=== PATIENT | male | born 1940 | race Caucasian/White ===

== ENCOUNTER 2018-03-05 13:25 | Emergency (ER) | payer MEDICARE, OTHER, SELFPAY ==
[2018-03-05 13:27] VITALS: BP 159/76; PULSE 57; RESP 16; TEMP 36.6; O2SAT 96; BMI 29.5
[2018-03-05 14:34] VITALS: BP 167/74; PULSE 74; RESP 18; O2SAT 98
--- NOTE | 2018-03-05 14:47 | RAD_ITS ---
STUDY: X-RAY - LEFT SHOULDER REASON FOR EXAM: Left shoulder pain from a fall. TECHNIQUE: 4 view(s) of the shoulder. COMPARISON: None. FINDINGS: Normal glenohumeral articulation. Normal acromioclavicular joint. Normal acromion. Normal humeral head and visualized proximal humerus. The soft tissue structures are unremarkable. Normal visualized pulmonary apex. RAD/Shoulder min 2 Views IMPRESSION: Unremarkable x-ray examination of the left shoulder without demonstrated fracture. Electronically Signed: Gary Pepe MD at 16:05 EDT Tel , Service support ,
--- NOTE | 2018-03-05 14:47 | CT_ITS ---
STUDY: CT BRAIN WITHOUT CONTRAST REASON FOR EXAM: Male, 78 years old. Syncope. Abrasion. RADIATION DOSAGE (If Supplied By Facility): CTDIvol = ( 44.99 ) mGy, DLP = ( 846.73 ) mGycm TECHNIQUE: Transaxial CT imaging of the brain was performed without administration of intravenous contrast material. Individualized dose optimization techniques were used for this CT. COMPARISON: None. FINDINGS: Normal soft tissue structures. Normal calvarium. There is moderate cerebral atrophy with widening of the extra-axial spaces and ventricular dilatation. Normal white matter tracts of the cerebral hemispheres. Normal basal ganglia and thalami. Normal brainstem. Normal cerebellum. There is no intracranial hemorrhage. There are no findings of an acute ischemic infarction. Normal visualized paranasal sinuses. CT/Brain/Head without Contrast IMPRESSION: Chronic involutional changes of the brain. Electronically Signed: Nazario Scott MD at 15:51 EDT , Service support ,
--- NOTE | 2018-03-05 14:47 | EKG12_ITS ---
Test Reason : SYNCOPE Blood Pressure : / mmHG Vent. Rate : 057 BPM Atrial Rate : 057 BPM P-R Int : 208 ms QRS Dur : 084 ms QT Int : 418 ms P-R-T Axes : 070 -09 049 degrees QTc Int : 406 ms Sinus bradycardia Otherwise normal ECG Confirmed by ARIANA LEACH, CHELI ([id number]), tape editor IFRAH CUMMINGS ([id number] on 03/08/2018 2:00:02 PM Referred By: RASHAD Confirmed By:CHELI LANE MD
--- NOTE | 2018-03-05 15:25 | RAD_ITS ---
STUDY: X-RAY - RIGHT HAND REASON FOR EXAM: Injury of the right third and fourth fingers from circular saw. TECHNIQUE: 3 view(s) of the hand. COMPARISON: Radiograph report 05/28/2012. FINDINGS: Normal radiocarpal articulation. Normal distal radioulnar joint. Normal visualized carpal bones. Normal carpal articulations Normal carpometacarpal articulation of the thumb. Normal second through fifth carpometacarpal joints. Normal metacarpi. Normal metacarpophalangeal joint of the thumb. There is joint space narrowing of the interphalangeal joint of the thumb. Normal proximal and distal phalanges of the thumb. Normal metacarpophalangeal joints of the second through fifth fingers. There is joint space narrowing of the second through fifth distal interphalangeal joints. There is a very small fracture of the radial aspect of the ungual tuft of the third finger. There is a soft tissue defect of the distal aspect of the third finger and mild swelling of the distal aspect of the fourth finger. RAD/Hand Min 3 Views IMPRESSION: Very small fracture of the ungual tuft of the third finger. 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 Electronically Signed: Gary Pepe MD at 16:03 EDT Tel , Service support ,
[2018-03-05 16:10] VITALS: BP 154/78; PULSE 66; RESP 16; O2SAT 96
[2018-03-05] MEDS: Diphth,Pertuss(Acell),Tet Vac 0.5 ML Vial IM (16:12)
--- NOTE | 2018-03-05 17:38 | ED.DCSUM_ITS ---
- ER Visit Summary Date of Service: 03/05/18 Chief Complaint: Circular saw injury to the right third and fourth fingers. History of Present Illness: The patient is a 78 M who was using a circular saw when he injured his right third and fourth digits. Afterwards he began to feel lightheaded and dizzy and had a syncopal episode. He fell onto his left shoulder and hit his head. He does have a prior history of vasovagal syncope related to pain or blood. He denies any chest pain or shortness of breath. He denies really any medical history. He takes no medications. Physical Examination: Afebrile vitals are unremarkable Heart regular rate and rhythm Lungs are clear Patient has active full range of motion left shoulder but it is painful. No deformity. No focal pain to the clavicle. He has a small hematoma over the left forehead. GCS is 15 with no focal or lateralizing neurological deficits There is an open wound of the right third distal finger with complex stellate laceration and macerated tissue there is a 1 cm more linear laceration of the distal right fourth finger his sensation is intact to light touch with brisk capillary refill Test Results: Hand x-ray shows a very small tuft fracture of the third finger. Left shoulder x-rays unremarkable. CT the head shows chronic changes only. EKG shows normal sinus rhythm at a rate of 57. Emergency Department Course and Treatment: Digital block was performed of the right third and fourth fingers. The fingers were cleansed with saline and chlorhexidine. The laceration of the fourth finger was able to be approximated with 3 simple interrupted 5-0 nonabsorbable sutures. There is macerated tissue and complex laceration of the distal third finger. I was able to place a single 5-0 nonabsorbable suture to approximate a portion of this laceration but any attempts at suturing any remaining tissue was unsuccessful and just resulted in tearing. I spoke to Dr. Cabral who has seen the patient previously. He states he would be able to follow -up the patient closely as an outpatient. The patient was instructed on specific signs and symptoms to monitor for and conditions under which to return to the emergency department. All questions answered at bedside. Patient discharged. Treatment Plan: [] Disposition: Discharge Impression: Open wound right third finger Laceration right fourth finger Tuft fracture right third finger Vasovagal syncope Shoulder contusion This note was generated with Dragon dictation software. It may contain incorrect words, spelling, and punctuation that were not noted in review of the chart prior to signing ED Disposition - Plan for ED Patient: Chief Complaint: Upper Extremity Injury Referrals: Jolanta Beltran DO [Primary Care Provider] -
--- NOTE | 2018-03-05 17:38 | NURSING ---
DR MI VALENCIA
--- NOTE | 2018-03-05 17:42 | NURSING ---
DR MI VALENCIA
--- NOTE | 2018-03-05 17:48 | ED.DEP ---
ED Disposition - Plan for ED Patient: Chief Complaint: Upper Extremity Injury Instructions: ED Laceration Hand, ED Fx Finger Open, ED Contusion Upper Ext, ED Syncope Vasovagal Prescriptions: Cefadroxil [Duricef] 500 mg PO BID #20 cap Referrals: Jolanta Beltran DO [Primary Care Provider] - Marco Cabral MD [STAFF PHYSICIAN] -
[2018-03-05 18:22] VITALS: BP 149/70; PULSE 67; RESP 16; O2SAT 96
== END 2018-03-05 18:29 | disposition home or self-care (01) ==
LOC: ED 15:08
PROVIDERS: Emergency Provider Emergency Medicine; Family Provider Internal Medicine; PCP Internal Medicine
DX: S62.632B Displaced fracture of distal phalanx of right middle finger, initial encounter for open fracture (principal); W29.8XXA Contact with other powered hand tools and household machinery, initial encounter; Y93.9 Activity, unspecified; Y92.9 Unspecified place or not applicable; Y99.9 Unspecified external cause status; S61.214A Laceration without foreign body of right ring finger without damage to nail, initial encounter; Z23 Encounter for immunization; R55 Syncope and collapse; S40.012A Contusion of left shoulder, initial encounter; W18.30XA Fall on same level, unspecified, initial encounter
CPT/HCPCS: 12001; 70450; 73030; 73130; 90471; 90715; 93005; 99285

== ENCOUNTER 2024-08-14 12:44 | Emergency (ER) | payer MEDICARE, OTHER, SELFPAY ==
[2024-08-14 12:47] VITALS: BP 166/59; PULSE 52; RESP 18; TEMP 36.4; O2SAT 98; BMI 25.6
--- NOTE | 2024-08-14 13:41 | EKG12_ITS ---
Test Reason : DIZZINESS Blood Pressure : / mmHG Vent. Rate : 047 BPM Atrial Rate : 047 BPM P-R Int : 206 ms QRS Dur : 086 ms QT Int : 456 ms P-R-T Axes : 070 -13 054 degrees QTc Int : 403 ms Sinus bradycardia Otherwise normal ECG Confirmed by ARIANA LEACH, CHELI ([id number]), newspaper copy editor RAYMOND NDIAYE ([id number]) on 08/15/2024 9:56:19 AM Referred By: Confirmed By:CHELI LANE MD
--- NOTE | 2024-08-14 13:42 | RAD_ITS ---
STUDY: X-RAY CHEST REASON FOR EXAM: Male, 84 years old. Stroke TECHNIQUE: Single AP portable view of the chest. COMPARISON: None. FINDINGS: The lungs are clear and expanded. Scattered calcified granulomas. There is no demonstrated pleural abnormality. Normal size heart. Normal mediastinum and yesika. Normal visualized pulmonary arteries. There is atherosclerotic calcification of the aortic arch with tortuosity. There are diffuse degenerative changes of the visualized thoracic spine. Normal visualized ribs, clavicles, and shoulders. There is no demonstrated abnormality of the visualized soft tissue structures of the upper abdomen. RAD/Chest 1 View (Portable) IMPRESSION: Scattered calcified granulomas. No acute abnormality is seen. Electronically Signed: Deandre Griggs MD at 13:56 EDT ,
[2024-08-14 14:25] LABS: Absolute Lymphocyte Count 2.75 X10^3/uL (0.83-4.51); Absolute Neutrophil Count 5.9 X10^3/uL (2.0-7.7); Basophil# 0.09 X10^3/uL; Basophil% 0.9 % (0-1); Eosinophil# 0.26 X10^3/uL; Eosinophils% 2.7 % (0-5); Hematocrit 37.8 % (40-54); Hemoglobin 12.5 g/dL (13.0-16.5); Lymphocyte # 2.75 X10^3/ul (0.83-4.51); Lymphocyte % 28.1 % (19-41); Mean Corp Hgb Conc 33.1 g/dL (32-36); Mean Corpuscular Hgb 32.1 pg (27.0-32.0); Mean Corpuscular Volume 96.9 fL (80-94); Mean Platelet Vol. 10.6 fl (6.2-12.0); Monocyte# 0.74 X10^3/uL; Monocyte% 7.6 % (0-10); NRBC Flagged by Analyzer 0.2 % (0-5); Neutrophil # 5.92 X10^3/uL (2.7-7.7); Neutrophil % 60.3 % (47-70); Platelet Count 263 K/mm3 (150-450); RBC Distribution Width CV 16.9 % (11.6-14.6); RBC Distribution Width SD 60.1 fl (35.1-43.9); White Blood Count 9.8 K/mm3 (4.4-11.0)
[2024-08-14 14:34] LABS: Prothrombin Time (Protime)PT. 13.4 SECONDS (11.7-14.9)
[2024-08-14 14:35] LABS: Partial Thromboplast Time 25.8 Seconds (24.1-36.2)
[2024-08-14 14:37] LABS: Anion Gap 3 (5-15); BUN 14 mg/dL (7-18); BUN/Creat Ratio 16.8 RATIO (10-20); Chloride 108 mmol/L (98-107); Creatinine, Serum 0.83 mg/dL (0.70-1.30); EST Glomerular Filtration Rate 94 mL/min (>60); Est Glom Filt Rate - Afr Amer 114 mL/min (>60); Estimated Creatinine Clearance 66.39 ml/min; Glucose 106 mg/dL (74-106); Potassium 3.9 mmol/L (3.5-5.1); Sodium Level 139 mmol/L (136-145)
[2024-08-14 14:42] VITALS: BP 170/61; PULSE 47; RESP 14
--- NOTE | 2024-08-14 15:31 | CT_ITS ---
STUDY: CT BRAIN WITHOUT CONTRAST REASON FOR EXAM: Male, 84 years old. head injury RADIATION DOSAGE (If Supplied By Facility): CTDIvol = ( 44.99 ) mGy, DLP = ( 863.60 ) mGycm TECHNIQUE: Transaxial CT imaging of the brain was performed without administration of intravenous contrast material. Individualized dose optimization techniques were used for this CT. COMPARISON: No relevant priors. FINDINGS: Normal soft tissue structures. Normal calvarium. Slightly prominent ventricles and extra-axial spaces with mild atrophy. Normal white matter tracts of the cerebral hemispheres. Normal basal ganglia and thalami. Normal brainstem. Normal cerebellum. There is no intracranial hemorrhage. There are no findings of an acute ischemic infarction. Normal visualized paranasal sinuses. CT/Brain/Head without Contrast IMPRESSION: No acute intracranial pathology of the brain. Electronically Signed: Raghu Winchester DO at 17:07 EDT ,
--- NOTE | 2024-08-14 15:33 | EX.ED.DYSGE1 ---
HPI History of Present Illness Chief Complaint: Dizziness Informant: patient Narrative Narrative: Patient is an 84 year old male who denies any significant past medical history presenting with dizziness. Patient states he started feeling dizzy 3 to 4 days ago. He states it feels like he is going to pass out and describes it more as a lightheadedness. Denies any room spinning or vertiginous symptoms. His noticed that this morning he went to get up and do his normal routine but instead just stood at the end of the bed for 2 to 3 minutes. He states he felt very weak at that time. He then felt better and went back to using the restroom and making his morning coffee. He went to his chiropractor for the symptoms on Sunday of this week, 3 days ago. At that time he had an adjustment of his neck and back and was noted to be bradycardic with a heart rate of 44. The chiropractor recommend he follow-up with the medical doctor. They try to get a hold of the 's primary care doctor as [facility] were [facility] so they ultimately came to the emergency room today. Patient states his lightheadedness is worse in the morning. He denies any syncope or loss of consciousness. He denies any falls. He notes that he does frequently hit his head on random things and that is not new for him. Denies any headaches or acute vision changes. Denies any shortness of breath, leg swelling, dyspnea on exertion or chest pain. Denies any nausea or vomiting, urinary symptoms or URI symptoms. Denies any black or blood in his stool. Does not take any medicine on a daily basis. States he last saw [facility] this [facility] where he had blood work and was told everything looked good. 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 No other complaints or concerns at this time. PFSH PFS Home Medications ?Medication ?Instructions ?Recorded ?Last Taken ?Type cefadroxil 500 mg capsule 500 mg PO BID #20 caps 03/05/18 Unknown Rx Allergy/AdvReac Type Severity Reaction Status Date / Time No Known Allergies Allergy Verified 08/14/24 12:47 Social History household members: spouse housing: house Smoking Status: Never smoker ROS ROS ED Constitutional Constitutional ED: Reports other Details: lightheaded ; Denies chills, fever(s), sweats or weight loss ENT ENT ED: Denies rhinorrhea or sore throat Cardiovascular Cardiovascular: Denies chest pain or palpitations Respiratory/Chest Respiratory/Chest: Denies cough, dyspnea or dyspnea on exertion Gastrointestinal Gastrointestinal: Denies abdominal pain, diarrhea, melena, nausea or vomiting Genitourinary Genitourinary ED: Denies dysuria or urinary frequency Musculoskeletal Musculoskeletal: Denies arthralgias or myalgias Integumentary Denies rash Neurologic Neurologic: Denies headache(s), paresthesias or weakness Psychiatric Psychiatric: Denies anxiety Hematologic/Lymphatic Hematologic/Lymphatic: Denies easy bleeding or easy bruising EXAM Physical Exam Const Vital Signs: 08/14/24 12:47 08/14/24 14:40 08/14/24 14:42 Temperature 97.5 F L Temperature Source Temporal Pulse Rate 52 L 47 L Pulse Rate [Lying] Pulse Rate [Sitting (for 1 minute prior to obtaining)] Pulse Rate [Standing (for 1 minute prior to obtaining)] Respiratory Rate 18 14 Blood Pressure 166/59 H 170/61 H Blood Pressure [Lying] Blood Pressure [Sitting (for 1 minute prior to obtaining)] Blood Pressure [Standing (for 1 minute prior to obtaining)] Blood Pressure Mean 94 97 Blood Pressure Mean [Lying] Blood Pressure Mean [Sitting (for 1 minute prior to obtaining)] Blood Pressure Mean [Standing (for 1 minute prior to obtaining)] Pulse Ox 98 Oxygen Delivery Method Room Air Room Air 08/14/24 16:39 08/14/24 18:05 Temperature 97.9 F Temperature Source Pulse Rate 46 L Pulse Rate [Lying] 52 L Pulse Rate [Sitting (for 1 minute prior to obtaining)] 46 L Pulse Rate [Standing (for 1 minute prior to obtaining)] 54 L Respiratory Rate 16 Blood Pressure 133/78 H Blood Pressure [Lying] 163/68 H Blood Pressure [Sitting (for 1 minute prior to obtaining)] 153/52 H Blood Pressure [Standing (for 1 minute prior to obtaining)] 137/66 H Blood Pressure Mean 96 Blood Pressure Mean [Lying] 99 Blood Pressure Mean [Sitting (for 1 minute prior to obtaining)] 85 Blood Pressure Mean [Standing (for 1 minute prior to obtaining)] 89 Pulse Ox 97 Oxygen Delivery Method Positive well nourished and well developed General Appearance ED: well developed and NAD; Negative for pallor HEENT Reports moist mucous membranes HEENT Narrative: No cephalhematoma however there is an abrasion to the left frontal scalp. No active bleeding. Normal oropharynx. Normal trach membranes bilaterally. There is a small white plastic foreign body in the left ear canal that appears to be a piece from his hearing aid. Eyes PERRL and EOMs intact bilaterally Neck supple Chest Wall inspection of chest normal and palpation of chest normal Resp normal respiratory effort and clear to auscultation bilaterally Cardio regular rhythm and no murmurs Rate: bradycardia GI normal to inspection, nondistended, normoactive bowel sounds and non-tender Palpation: Negative for mass Extremity normal to inspection General Extremety ED: Negative for edema or tenderness General Extremity: Negative for edema Neuro oriented x3, CN's II-XII intact bilaterally and no sensory deficits noted Neuro Narrative: Normal coordination, normal finger-nose. No truncal ataxia. Sensorium / Orientation: alert Motor Exam: strength 5/5 throughout; Negative for general weakness Psych mental status grossly normal Skin no rashes or lesions noted and no wounds General Skin Exam: Negative for pallor MDM MDM MDM Narrative Medical decision making narrative: Patient is evaluated for episodes of lightheadedness and was noted to be bradycardic. Patient is completely asymptomatic this time and states he feels fine. He does report that he has had a couple episodes of lightheadedness. He very adamantly denies any sensation of vertigo. Has no other complaints or concerns. Does not take any medicine on a daily basis. Patient's vital signs significant for mild hypertension as well as mild bradycardia. EKG shows sinus bradycardia but does not show any block concerning for more severe cardiogenic cause. Metabolic and cardiac workup obtained including CBC, coags, BMP, urinalysis, orthostatic vital signs, chest x-ray and EKG. Patient does have an abrasion on his head and states he does hit his head a lot so we will also obtain a CT of the brain to ensure there is not a space-occupying lesion or trauma/intracranial hemorrhage that could be causing the bradycardia and lightheadedness. Orthostatics are positive. Patient is symptomatic when goes from lying to sitting and his blood pressure dropped from 163/68 with lying to 137/66 with standing. Will give the patient a liter of IV fluids. His lab work is largely normal but does have a very anemia with a hemoglobin of 12.5. This is nonspecific. Patient like to go home and overall is quite well-appearing. I feel at this time that outpatient workup is appropriate. Is instructed follow-up with his primary care doctor, Dr. Fowler, through the CT in [place]. Discussed that he might require outpatient cardiac testing including echocardiogram and other cardiac evaluation. He verbalized agreement understanding with this. Is given return precautions including syncope, worsening symptoms or chest pain. Patient and family verbalized agreement to this plan. Lab Data Attestation: I reviewed the patient's lab results. Labs: Laboratory Results - last 24 hr 08/14/24 08/14/24 14:15 16:15 WBC 9.8 RBC 3.90 L Hgb 12.5 L Hct 37.8 L MCV 96.9 H MCH 32.1 H MCHC 33.1 RDW Std Deviation 60.1 H RDW Coeff of Krystal 16.9 H Plt Count 263 MPV 10.6 Immature Gran % (Auto) 0.400 Neut % (Auto) 60.3 Lymph % (Auto) 28.1 [place] % (Auto) 7.6 Eos % (Auto) 2.7 Baso % (Auto) 0.9 Absolute Neuts (auto) 5.9 Absolute Lymphs (auto) 2.75 Nucleated RBC % 0.2 PT 13.4 INR 1.0 APTT 25.8 Sodium 139 Potassium 3.9 Chloride 108 H Carbon Dioxide 28.0 Anion Gap 3 L BUN 14 Creatinine 0.83 Estim Creat Clear Calc 66.39 Est GFR (MDRD) Af Amer 114 Est GFR (MDRD) Non-Af 94 BUN/Creatinine Ratio 16.8 Glucose 106 Calcium 9.0 TSH 1.150 Urine Color Yellow Urine Clarity Clear Urine pH 6.5 Ur Specific [place] 1.010 Urine Protein Negative Urine Glucose (UA) Normal Urine Ketones Negative Urine Occult Blood Negative Urine Nitrite Negative Urine Bilirubin Negative Urine Urobilinogen Normal Ur Leukocyte Esterase Negative Urine RBC 0 SEEN Urine WBC 0 SEEN Ur Squamous Epith Cells 0 SEEN Urine Bacteria 0 SEEN Urine Mucus 0 SEEN Radiography Chest X-Ray - ED: 1 View, Read by ED Physician, Read by Radiologist and No Acute Disease Diagnostic Testing: Clinical Impression(s) from Imaging Studies Chest X-Ray 08/14/24 13:42 IMPRESSION: Scattered calcified granulomas. No acute abnormality is seen. Electronically Signed: Deandre Griggs MD at 13:56 EDT , Brain CT 08/14/24 15:31 IMPRESSION: No acute intracranial pathology of the brain. Electronically Signed: Raghu Winchester DO at 17:07 EDT , Rhythm Strip Rhythm Strip: Sinus Rhythm Rate: 47 Ectopy: None EKG Initial EKG: Attestation: I personally reviewed and interpreted this EKG as follows: Interpretation: Sinus Bradycardia Comments: Sinus bradycardia rate of 47 bpm Normal axis Normal intervals Normal ST segments Compared to prior EKG on 03/05/2018, no acute change Discharge Plan Triage Chief Complaint: Dizziness ED Provider: Kim Strauss Dx/Rx/DC Orders Clinical Impression: Intermittent lightheadedness, Bradycardia Instructions: ED Dizziness, Uncertain Cause Prescriptions: No Action cefadroxil 500 MG capsule 500 mg PO BID Qty: 20 0RF Primary Care Provider: Jolanta Beltran Referrals: Jolanta Beltran DO [Primary Care Provider] - Activity Restrictions/Additional Instructions: Make sure you are drinking plenty of fluids (water). You had a very mild anemia with a hemoglobin 12.5 today. Your lab works otherwise normal. If you develop chest pain, worsening symptoms or pass out please return immediately to the nearest emergency room. [facility] as we discussed for further evaluation of this. Print Language: Mosotho Disposition Disposition: Home, Self Care Discharge Date/Time: 08/14/24 18:05
[2024-08-14 16:20] LABS: Bacteria 0 SEEN /hpf (None Seen); Mucous, Urine 0 SEEN /hpf (<or=2+); Red Blood Cells-Urine 0 SEEN /hpf (0-5); Squamous Epithelial Cells - UA 0 SEEN /hpf (0-5); White Blood Cells 0 SEEN /hpf (0-5)
[2024-08-14 16:35] LABS: Color, Urine Yellow (Yellow); Glucose, Dipstick Normal (Normal); Ketone-Dipstick Negative (Negative); Leukocyte Esterase-Dipstick Negative /ul (Negative); Nitrite-Dipstick Negative (Negative); Occult Blood-Urine Negative /ul (Negative); Protein-Dipstick Negative (Negative); Urine Bilirubin Dipstick Negative (Negative); Urine Clarity Clear (Clear); Urine Urobilinogen Normal (Normal); Urine pH 6.5 (5.0 - 8.0)
[2024-08-14 16:39] VITALS: BP 137/66; BP 153/52; BP 163/68; PULSE 46; PULSE 52; PULSE 54
[2024-08-14] MEDS: 0.9% Normal Saline (1000mL) 1,000 ML 999 ML IV (16:58)
[2024-08-14 18:05] VITALS: BP 133/78; PULSE 46; RESP 16; TEMP 36.6; O2SAT 97
== END 2024-08-14 18:05 | disposition home or self-care (01) ==
PROVIDERS: Emergency Provider Emergency Medicine; PCP Internal Medicine; Visit Provider Emergency Medicine
DX: R42 Dizziness and giddiness (principal); R00.1 Bradycardia, unspecified
CPT/HCPCS: 70450; 71045; 80048; 81001; 84443; 85025; 85610; 85730; 93005; 99285; J7030; A4216

== ENCOUNTER → 2024-09-26 | Outpatient (CLI) | payer MEDICARE, OTHER, SELFPAY | END | disposition home or self-care (01) | LOC: PSN 08:35 | PROVIDERS: PCP Internal Medicine; Referring Provider Internal Medicine; Visit Provider Internal Medicine | DX: R00.1 Bradycardia, unspecified (principal) | CPT/HCPCS: 93225; 93226 ==